=== PATIENT | male | born 1925 | race Caucasian/White ===

== ENCOUNTER 2016-05-02 09:07 | Inpatient (IN) | payer OTHER ==
[2016-05-02] MEDS ORDERED: ATROVENT NEB INH ONE (09:42)
[2016-05-02] MEDS ORDERED: SOLU-MEDROL IV ONE (09:42)
[2016-05-02] MEDS ORDERED: ALBUTEROL NEB INH ONE (09:42)
--- NOTE | 2016-05-02 09:57 | PROVIDER DOCUMENTATION ---
HPI-Musculoskeletal Pain/Inj - GENERAL Chief Complaint: Wheezing Stated Complaint: SOB Time Seen by Provider: 05/02/16 09:09 Source: patient, family - HX OF PRESENT ILLNESS-MUSKULOSKELTAL Nature of Presenting Problem: Pt is 89 y/o M presents to the ED with weakness. Pt's friend states Pt fell in bathroom and hit head. Pt's states Pt was recently seen by PCP and was diagnosed with bronchitis and was prescribed Levaquin. Pt's states Pt has taken one dose. Pt states hx of COPD and denies home O2. Quality of Pain: reports: aching Severity in ED: mild Onset/Duration: unsure Timing: still present Modifying Factors: improves with: nothing Any recent injury?: Yes (fall ) Locality of Occurance: Home Similar Symptoms Previously?: Yes Recently seen or treated by another doctor?: Yes - FALL INJURY Location of Pain/Injury: reports: head (L side forehead) Pain Radiation: reports: no radiation Reason for Fall: reports: unknown Symptoms prior to fall:: reports: none Loss of Consciousness: brief (seconds) Injury Associated Symptoms: reports: muscle aches, shortness of breath, weakness , trouble walking. denies: arm pain, back/neck pain, chest pain, diaphoresis, dizziness, headaches, joint pain, nausea, puncture wound, sensory/motor loss, snap/crack/pop sensation, pain with inspiration, unable to bear weight, vomiting Review of Systems - Adult - REVIEW OF SYSTEMS - ADULT Constitutional: denies: chills, fever Eyes: denies: blurred vision, double vision Ears, Nose, Mouth & Throat: denies: ear pain, nose pain, throat pain Cardiovascular: denies: chest pain, heart murmur, irregular heart rate Respiratory: reports: shortness of breath, wheezing. denies: cough Gastrointestinal: denies: abdominal pain, diarrhea, nausea, vomiting Genitourinary: denies: dysuria, hematuria Musculoskeletal: reports: muscle aches, muscle weakness. denies: bone pain, joint pain, neck pain Integumentary: denies: hives, itching Neurological: denies: dizziness/vertigo, headache/migraines Psychiatric: reports: no symptoms reported Endocrine: reports: no symptoms reported Hematologic/Lymphatic: reports: no symptoms reported Allergic/Immunologic: reports: no symptoms reported All Other Systems: Reviewed and Negative Past History - Adult - PAST MEDICAL HISTORY-ADULT Review of Records: reports: Nursing Assessment Review, Medications Reviewed, Social history reviewed & non-contributory. Major Childhood Illnesses: reports: denies history Cardiovascular: reports: A-Fib, hyperlipidemia, pacemaker Respiratory: reports: asthma, COPD Gastrointestinal: reports: denies history Obstetrical/Gynecological: reports: denies history Genitourinary: reports: other ("prostate problems") Musculoskeletal: reports: denies history Neurological: reports: denies history Endocrine/Immune: reports: denies history Other Conditions: reports: denies history - PRIOR SURGERIES/PROCEDURES Surgical/Procedure History: reports: other (TURP) - IMMUNIZATION STATUS Childhood Immunizations: See Nurse Assessment Flu Vaccine: See Nurse Assessment - FAMILY HISTORY Family History: reviewed, not pertinent - SOCIAL HISTORY Smoking: quit less than 1 year, cigarettes Substance Use: alcohol Alcohol Use Frequency: rarely Number of drinks per typical drinking period:: 2 drinks Living Situation: family Physical Exam-Injury Related - Physical Exam-Injury Related Initial Vital Signs Reviewed: Yes General Appearance: appears well, alert, no apparent distress Eyes: PERRL/EOMI, pink conjunctivae, fundi clear, no AV nicking Head, Ears, Nose, Mouth & Throat: normocephalic/atraumatic, moist mucous membranes, normal ENT inspection, TMs normal, pharynx normal Neck: non-tender, full range of motion, supple, normal inspection Respiratory: chest non-tender, no pleuratic chest pain, no respiratory distress , no accessory muscle use, rhonchi, wheezing, increased rate Cardiovascular: normal peripheral pulses, regular rate, rhythm, no edema, no gallop, no JVD, no murmur Abdominal Exam: normal bowel sounds, non tender, soft, no organomegaly, no pulsatile mass Lymphatic: no adenopathy Back Exam: normal inspection, no CVA tenderness, no vertebral tenderness Extremity: normal range of motion, non-tender, normal inspection, no pedal edema , no calf tenderness, normal capillary refill Integumentary: normal color, warm/dry, ecchymosis (L side forehead) Neurologic: grossly normal Psych/Mental Status: normal mood/affect, oriented x 3 Progress - PLAN OF CARE/RESULTS Progress/Plan/Lab Results: Orders Category Date Time Status Cardiac Monitoring DIRECTED Care 05/02/16 09:42 Active Saline Loc NOW Care 05/02/16 09:42 Active CHEST-2 VIEWS [RAD] Stat Exams 05/02/16 09:19 Taken HEAD/C-SPINE W/O CONTRAST [CT] Stat Exams 05/02/16 09:21 Ordered ABG [RESP] Routine Lab 05/02/16 09:42 Ordered BLOOD CULTURE [BLDCUL] Stat Lab 05/02/16 09:42 Uncollected CBC WITH ELECTRONIC DIFF [HEME] Stat Lab 05/02/16 09:42 Uncollected CK PROFILE [SP CHEM] Stat Lab 05/02/16 09:42 Uncollected COMPREHENSIVE METABOLIC PANEL [CHEM] Stat Lab 05/02/16 09:42 Uncollected D-DIMER [CHEM] Stat Lab 05/02/16 09:42 Uncollected MAGNESIUM [CHEM] Stat Lab 05/02/16 09:42 Uncollected PRO B-NATRIURETIC PEPTIDE Stat Lab 05/02/16 09:42 Uncollected PROTIME WITH INR [COAG] Stat Lab 05/02/16 09:42 Uncollected PTT [COAG] Stat Lab 05/02/16 09:42 Uncollected TROPONIN T Stat Lab 05/02/16 09:42 Uncollected UA NIMS W/REFLEX CULT [URINALYSIS] Stat Lab 05/02/16 09:42 Uncollected Albuterol [Albuterol Neb] Med 05/02/16 09:42 Discontinued 7.5 mg INH NOW ONE Ipratropium [place] Neb [Atrovent Neb] Med 05/02/16 09:42 Discontinued 0.5 mg INH NOW ONE Methylprednisolone Sod Succ [Solu-Medrol] Med 05/02/16 09:42 Discontinued 125 mg IV NOW ONE Aerosol Treatments Routine Oth 05/02/16 09:44 Active Aerosol Treatments Stat Oth 05/02/16 09:44 Active EKG [EKG] Stat Ther 05/02/16 09:42 Ordered Vital Signs - 24 hr 05/02/16 09:13 Temperature 97.8 F Pulse Rate 81 Respiratory 22 Rate Blood Pressure 142/82 O2 Sat by Pulse 94 L Oximetry Laboratory Tests 05/02/16 05/02/16 05/02/16 10:16 10:16 10:16 WBC 9.95 RBC 4.52 L Hgb 14.0 Hct 38.8 L MCV 85.8 MCH 31.0 MCHC 36.1 RDW Std Deviation 12.5 Plt Count 154 MPV 10.0 Immature Gran % (Auto) 0.2 Neut % (Auto) 74.8 Lymph % (Auto) 9.5 L [place] % (Auto) 15.4 H Eos % (Auto) 0.0 Baso % (Auto) 0.1 Immature Gran # (Auto) 0.02 Neut # (Auto) 7.44 H Lymph # (Auto) 0.95 L [place] # (Auto) 1.53 H Eos # (Auto) 0.00 Baso # (Auto) 0.01 PT INR D-Dimer 0.48 Specimen Type Sample Site pH pCO2 pO2 HCO3 Base Excess Oxyhemoglobin ABG O2 Sat (Calculated) ABG O2 Saturation ABG Carboxyhemoglobin ABG Methemoglobin Kev Test A-a O2 Difference Total Hemoglobin Lactate Blood Gas Modality FiO2 % Sodium 120 L* Potassium 4.1 Chloride 84 L Carbon Dioxide 23 L Anion Gap 13 BUN 18 Creatinine 0.8 Estimated GFR/1.73 m2 > 60 BUN/Creatinine Ratio 23 Glucose 114 H Calculated Osmolality 245 Calcium 8.1 L Magnesium 1.9 Total Bilirubin 1.37 H AST 67 H ALT 35 Alkaline Phosphatase 59 Creatine Kinase 806 H Troponin T Ngs-G-Qalatcnhghd Pept Total Protein 6.1 L Albumin 3.7 Globulin 2.4 Albumin/Globulin Ratio 1.5 05/02/16 05/02/16 05/02/16 10:16 10:16 10:16 WBC RBC Hgb Hct MCV MCH MCHC RDW Std Deviation Plt Count MPV Immature Gran % (Auto) Neut % (Auto) Lymph % (Auto) [place] % (Auto) Eos % (Auto) Baso % (Auto) Immature Gran # (Auto) Neut # (Auto) Lymph # (Auto) [place] # (Auto) Eos # (Auto) Baso # (Auto) PT 15.9 H INR 1.49 D-Dimer Specimen Type Sample Site pH pCO2 pO2 HCO3 Base Excess Oxyhemoglobin ABG O2 Sat (Calculated) ABG O2 Saturation ABG Carboxyhemoglobin ABG Methemoglobin Kev Test A-a O2 Difference Total Hemoglobin Lactate Blood Gas Modality FiO2 % Sodium Potassium Chloride Carbon Dioxide Anion Gap BUN Creatinine Estimated GFR/1.73 m2 BUN/Creatinine Ratio Glucose Calculated Osmolality Calcium Magnesium Total Bilirubin AST ALT Alkaline Phosphatase Creatine Kinase Troponin T < 0.010 Mep-R-Kiliyzzfjhj Pept 4412 H Total Protein Albumin Globulin Albumin/Globulin Ratio 03/18/17 10:40 WBC RBC Hgb Hct MCV MCH MCHC RDW Std Deviation Plt Count MPV Immature Gran % (Auto) Neut % (Auto) Lymph % (Auto) [place] % (Auto) Eos % (Auto) Baso % (Auto) Immature Gran # (Auto) Neut # (Auto) Lymph # (Auto) [place] # (Auto) Eos # (Auto) Baso # (Auto) PT INR D-Dimer Specimen Type ARTERIAL Sample Site R RADIAL pH 7.48 H pCO2 32 L pO2 60 HCO3 25.6 Base Excess 1.0 Oxyhemoglobin 93.1 L ABG O2 Sat (Calculated) 18.4 ABG O2 Saturation 96.3 ABG Carboxyhemoglobin 2.30 ABG Methemoglobin 1.1 Kev Test YES A-a O2 Difference 50.0 Total Hemoglobin 14.1 Lactate 1.90 Blood Gas Modality ROOM AIR FiO2 % 21.0 Sodium Potassium Chloride Carbon Dioxide Anion Gap BUN Creatinine Estimated GFR/1.73 m2 BUN/Creatinine Ratio Glucose Calculated Osmolality Calcium Magnesium Total Bilirubin AST ALT Alkaline Phosphatase Creatine Kinase Troponin T Vda-A-Dsuuzijirhy Pept Total Protein Albumin Globulin Albumin/Globulin Ratio - EKG 1 Time of EKG reading by physician:: 10:39 EKG Read and Signed by:: Pia Hurt EKG Interpretation (*Must complete 3 of following elements*): Abnormal ( inferior infarct, age undetermined; possible anterolateral infarct,age undetermined) Rate: 80 Rhythm: wide QRS rhythm Comments: left axis deviation; nonspecific intraventricular block - XRAY 1 XRAY: Bilateral XRAY Study: Chest Impression: Abnormal XRAY Interpretation: CHF per Dr. Hurt - CT/MRI 1 CT Study: Cervical Spine, Head Impression: Abnormal CT Results: NAP intracranially; DJD but no fx. or other definite acute cspine injury - CONSULTS/PCP/HOSPITALIST Notification #1 *Consult/PCP/Hospitalist*: Dr. Lawrence Time Discussed: 12:00 (Dr. Lawrence accepted admit ) Reason/Comments: Dr. Hurt consulted with Dr. Lawrence about admit of Pt Consult Disposition: Admit Departure - Departure Time of Disposition Order: 11:41 DIAGNOSIS: COPD exacerbation, Hyponatremia Head injury Qualifiers: Encounter type: initial encounter Qualified Code(s): S09.90XA - Unspecified injury of head, initial encounter Disposition: ADMITTED INPATIENT 09 Certified Medical Emergency: Emergent Condition: Stable Attestation - Scribe Verification/Attestation Scribe:: Stephanie Wilson Acting as Scribe for:: Pia Hurt Scribe documention review:: This chart was documented by a scribe and accurately reflects the service the provider performed and the decisions made by the provider.
[2016-05-02 10:36] LABS: MANUAL DIFF NEEDED? NO
[2016-05-02 10:38] LABS: BASO% 0.1 % (0.0-0.8); HEMATOCRIT 38.8 % (42.0-52.0); IMM GRAN# 0.02 X1000 (0.0-0.04); IMM GRAN% 0.2 % (0.0-0.5); LYMPH# 0.95 X1000 (1.2-3.4); LYMPH% 9.5 % (20.5-51.1); MCHC 36.1 g/dL (33-37); MCV 85.8 FL (81-99); MONO# 1.53 X1000 (0.11-0.59); MONO% 15.4 % (1.7-9.3); NEUT% 74.8 % (42.2-75.2); PLT 154 X1000 (130-400); RBC 4.52 XMIL (4.7-6.1)
[2016-05-02 10:47] LABS: INR 1.49; PROTIME 15.9 Seconds (9.2-11.7)
[2016-05-02 10:54] LABS: ALLEN TEST YES; BLOOD TYPE ARTERIAL; DRAW SITE R RADIAL; METHB 1.1 % (0.0-1.5); O2(CT) 18.4 mL/dL (15.0-23.0); PCO2(98.6) 32 mmHg (35-45); PO2(98.6) 60 mmHg (60-100); SAMPLE BLOOD; SAO2 96.3 % (95.0-100.0); THB 14.1 g/dL (11.5-17.4); pH(98.6) 7.48 (7.35-7.45)
[2016-05-02 10:57] LABS: MODALITY ROOM AIR
[2016-05-02 11:10] LABS: AGAP 13; ALBUMIN 3.7 g/dL (3.5-5.0); ALKALINE PHOSPHATASE 59 U/L (32-122); BUN 18 mg/dL (8-22); CALCIUM 8.1 mg/dL (8.8-10.2); CHLORIDE 84 mmol/L (98-107); CK PROFILE 806 U/L (24-204); COSMO 245; GOT 67 U/L (10-34); GPT 35 U/L (10-44); MAGNESIUM 1.9 mg/dL (1.5-2.7); POTASSIUM 4.1 mmol/L (3.5-5.1); TCO2 23 mmol/L (25-35); TOTAL BILIRUBIN 1.37 mg/dL (0.20-1.00); TOTAL PROTEIN 6.1 g/dL (6.3-8.3)
--- NOTE | 2016-05-02 11:14 | Diag Imaging Result Document ---
PROCEDURE NAME: HEAD/C-SPINE W/O CONTRAST - 05/02/2016 CT HEAD AND C-SPINE WITHOUT CONTRAST: COMPARISON: CT head dated 06/27/2011. FINDINGS: Head: There is extensive low attenuation in the periventricular and subcortical white matter that is stable, consistent with advanced microangiopathy. There is no evidence of acute infarct, given the limited sensitivity of CT verses MRI. There is no discrete intracranial mass, mass effect, or intracranial hemorrhage. There is mild ethmoid and maxillary sinus mucosal disease. Surrounding soft tissues are essentially unremarkable, otherwise, by CT. Calvaria is intact. C-spine: There is multilevel facet arthropathy at virtually every level, more prominent on the left. There is also multilevel degenerative disk disease, most significant at C4-5 and C6-7, where there is loss of disk space height and more prominent marginal osteophytes. There is some degree of neuroforaminal narrowing and, to a lesser degree, central canal narrowing at several levels, related to the degenerative change. There is no evidence of fracture, traumatic subluxation, or intrinsic osseous lesion, otherwise. There is minimal anterolisthesis of C5 on C6, related to facet arthropathy. Surrounding soft tissues are essentially unremarkable. IMPRESSION: 1. Stable extensive chronic changes, as described, but no evidence of acute intracranial pathology. 2. Multilevel degenerative change throughout the cervical spine, but no evidence of fracture or other definite acute C-spine injury.
[2016-05-02 11:27] LABS: PTT 47.6 Seconds (22.0-36.0)
[2016-05-02 11:36] LABS: CK INDEX 1.7 (0.0-2.5); CK-MB 13.63 ng/mL (0.0-5.0); SODIUM 122 mmol/L (136-145)
--- NOTE | 2016-05-02 11:43 | Diag Imaging Result Document ---
PROCEDURE NAME: CHEST-2 VIEWS - 05/02/2016 SEATED AP AND LATERAL RADIOGRAPH OF THE CHEST: COMPARISON: 08/27/2015. FINDINGS: Inspiration is suboptimal. Central vasculature appears prominent suggesting pulmonary venous congestion and there are bilateral interstitial and airspace opacities, worst on the right, that probably represents pulmonary edema. Superimposed pneumonia cannot be excluded, especially at the right lung base. Cardiac silhouette is grossly stable. Left-side pacemaker is in stable position. IMPRESSION: Suggestion of pulmonary venous congestion and mild basilar edema. Superimposed pneumonia cannot completely be excluded.
[2016-05-02] MEDS ORDERED: LASIX IV ONE (12:24)
[2016-05-02] MEDS ORDERED: ZITHROMAX 500 MG/NS 250 ML IV SCH (12:30)
[2016-05-02 12:40] LABS: URINE MICRO REVIEW NEEDED? NO; URINE SOURCE CLEAN CATCH
[2016-05-02 12:49] LABS: BILIRUBIN URINE NEGATIVE (NEGATIVE); BLOOD URINE TRACE (NEGATIVE); COLOR YELLOW; GLUCOSE URINE NEGATIVE (NEGATIVE); LEUKOCYTES URINE LARGE (NEGATIVE); NITRITE URINE NEGATIVE (NEGATIVE); PROTEIN URINE 30 mg/dL (NEGATIVE); TURBIDITY URINE HAZY (CLEAR); UROBILINOGEN URINE NORMAL (NORMAL)
[2016-05-02 12:51] LABS: UR EPITHELIAL CELLS >10 /HPF (<10); URINE BACTERIA NEGATIVE /HPF; URINE CULTURE NEEDED? YES; URINE RBC <10 /HPF (<10); URINE WBC <10 /HPF (<10)
[2016-05-02] MEDS ORDERED: TYLENOL PO PRN (12:59)
[2016-05-02] MEDS ORDERED: ZITHROMAX 500 MG/NS 250 ML IV ONE (13:00)
[2016-05-02] MEDS: ZITHROMAX 500 MG/NS 250 ML IV SCH (13:36)
[2016-05-02] MEDS ORDERED: TPN ELECTROLYTES 20 ML, MAGNESIUM SULFATE 5 MEQ, POTASSIUM CHLORIDE 20 MEQ, M.V.I.-12 1... IV SCH ×8 (15:00)
--- NOTE | 2016-05-02 16:35 | HISTORY AND PHYSICAL ---
PRIMARY CARE PROVIDER: Dr. Kimberly Lake. CHIEF COMPLAINT: Wheezing, shortness of breath, weakness, and syncope. HISTORY OF PRESENT ILLNESS: Mr. Ron Kevin is an 89-year-old male who has a past medical history of atrial fibrillation with a permanent pacemaker on Xarelto therapy, COPD and asthma without oxygen at home, and hypothyroidism. He denies any history of congestive heart failure or heart disease. According to ER records, a friend stated that he fell in the bathroom and hit his head. The patient is currently alone in the room, so when patient was questioned about this event he states he does not remember falling, so it is unknown if he had syncope or if he hit his head and does not remember. Head CT was negative for any acute findings and cervical spine was stable. It only showed degenerative disk disease. He has no complaints of headache or dizziness. He states for the last week he has had symptoms of shortness of breath with wheezing, but denies coughing up any phlegm. Denies fever or chills. He was seen by his primary care provider, who diagnosed him with bronchitis and he was started on Levaquin per the , who is also not at the bedside. This was obtained from ER medical records. He only had 1 dose of his Levaquin. The chest x-ray shows that he does have some pulmonary edema and some possible right- sided pneumonia, although he denies having a history of congestive heart failure. Will treat with a 1-time dose of Lasix and start him on azithromycin for possible pneumonia. He has wheezing and crackles on auscultation. He is currently on room air and his saturation is hanging around 90% to 92%. He is short of breath and he has audible expiratory wheezes. His atrial fibrillation is at a controlled rate and he is being continuously paced at a rate of 80 by his permanent pacemaker. He has no lower extremity edema. He denies nausea, vomiting, diarrhea, or constipation. He denies blood in the urine or stool. Denies lower extremity edema. He denies pain. We will admit him to the medical floor and do a workup for COPD and congestive heart failure. PAST MEDICAL HISTORY: 1. Atrial fibrillation, currently paced at a rate of 80. 2. Hyperlipidemia. 3. GERD. 4. COPD and asthma. No home O2. 5. Thoracic spondylosis and degenerative disk disease. 6. BPH status post TURP. 7. Depression. 8. Hypothyroidism. 9. Arthritis. 10. Restless legs syndrome. He takes Neurontin for it. 11. Insomnia/ PAST SURGICAL HISTORY: 1. TURP. 2. Bilateral cataract surgery. 3. Permanent pacemaker. FAMILY HISTORY: Positive for hyperlipidemia, hypertension, and stroke. SOCIAL HISTORY: Quit smoking in 1992 but prior to that he was a 3 pack per day smoker for 20 years. Has an occasional social drink of alcohol. Denies illicit drug use. He lives at home with his . REVIEW OF SYSTEMS: A 14-point review of systems were complete and all were negative except for those mentioned in the above HPI. ALLERGIES: Diazepam, penicillin, and Alfuzosin. HOME MEDICATIONS: Wellbutrin 75 mg p.o. daily; Vytorin nightly; Neurontin 100 mg p.o. daily; Neurontin 300 mg p.o. nightly; Synthroid 37.5 mcg p.o. daily; Lawanda 180 mg p.o. daily; vitamin C 1000 mg p.o. daily; calcium plus D3 extended release tablet 1 tablet p.o. daily; Culturelle once daily; vitamin B12 1000 mcg p.o. daily; Detrol 2 mg p.o. daily; Eszopiclone 2 mg p.o. nightly; glucosamine daily; magnesium oxide 125 mg p.o. daily; multivitamin with iron twice daily; Xarelto 50 mg p.o. nightly; Co Q-10 2 tabs p.o. daily. LABORATORY DATA: White blood cells 9000, hemoglobin 14, hematocrit 38, platelet count 154,000. INR 1.49. PTT is 47.6. D-dimer is 0.48. pH 7.48, pCO2 of 32, PO2 of 60, bicarbonate 25, base excess 1, oxyhemoglobin 93 on room air. Lactate 1.9. Sodium 122, potassium 4.1, BUN 18, creatinine 0.8, glucose 114, calcium 8.1, magnesium 1.9. Total bilirubin is 1.37, AST 67, ALT 35. CK 806. MB 13.63. Troponin less than 0.01. proBNP 4412. Protein 6.1. Urinalysis pending. IMAGING: Chest x-ray: Pulmonary venous congestion and mild bibasilar edema, right greater than left. Possible superimposed pneumonia on the right. Head and cervical CT: Stable extensive chronic changes, but no evidence of acute intracranial pathology. Multilevel degenerative change throughout the cervical spine, but no evidence of fracture or other acute C-spine injury. EKG: Paced rhythm, rate of 80, with left axis deviation. PHYSICAL EXAMINATION: VITAL SIGNS: Temperature 97.8 degrees, heart rate 80, respiratory rate 22, blood pressure 122/80, O2 saturation 93% on room air, 5 feet 8 inches tall, 170 pounds, 25.8 BMI. GENERAL: Mr. Kevin is an 89-year-old, ill-appearing male with mild respiratory discomfort, but able to answer questions appropriately. HEENT: Atraumatic, normocephalic. Pupils equal, round, reactive to light. Extraocular movements intact. Mucous membranes moist. NECK: No obvious JVD. No carotid bruits. CARDIOVASCULAR: S1 and S2. Regular rate and rhythm. Left chest pacemaker in place. No rubs, gallops, or murmurs. PULMONARY: Bilateral anterior and posterior expiratory wheezes with crackles in the bases bilaterally. Mild work of breathing. Mild accessory muscle use. Currently on room air. GASTROINTESTINAL: Soft, nontender, nondistended. Positive bowel sounds x4. EXTREMITIES: No edema noted. Dorsalis pedal pulses +3, radial pulses +2. SKIN: Warm, dry, intact. NEUROLOGIC: A and O x3. Moved all extremities equally. ASSESSMENT AND PLAN: 1. Chronic obstructive pulmonary disease exacerbation, although he is not retaining CO2. Will treat with IV steroids, inhaled albuterol and Atrovent, acetylcysteine and budesonide. Will treat with antibiotic coverage. Will use azithromycin as he has a penicillin allergy. Will add 2L nasal cannula as needed and do aggressive pulmonary toilet. 2. Possible pneumonia on the right. Again, will use azithromycin. 3. Pulmonary edema with bilateral venous congestion on chest x-ray. He does have wheezes and crackles with auscultation. Will rule out congestive heart failure with an echocardiogram. Will give a 1-time dose of 40 of IV Lasix and follow up with a chest x-ray tomorrow, and repeat a proBNP for tomorrow. 4. Syncope versus fall. The patient did hit his head, so unsure if he just does not remember falling or if he truly passed out. Again, we will do a carotid and echocardiogram. Head CT was negative for any acute findings. No signs of a stroke. 5. Hyponatremia. Will repeat sodium level tomorrow. He has received Lasix for today. 6. Hyperbilirubinemia with some mild transaminitis. Will repeat laboratory tomorrow. It is unsure if this is chronic in nature. 7. Atrial fibrillation history, currently being 100% paced at a rate of 70 ventricularly paced. He takes Xarelto. Will continue this. 8. Hypothyroidism. Continue Synthroid and check TSH and T4 in the morning. 9. Hyperlipidemia. Continue home medication and recheck a lipid panel in the morning. 10. Gastroesophageal reflux disease. Continue proton pump inhibitor. 11. Benign prostatic hypertrophy history, status post transurethral resection of prostate. Continue Detrol. 12. Depression. Continue Wellbutrin. 13. Restless legs syndrome. Continue Neurontin. 14. Insomnia. Continue Eszopiclone. 15. Arthritis. Continue glucosamine. 16. Deep venous thrombosis prophylaxis with Xarelto. 17. Gastrointestinal prophylaxis with proton pump inhibitor. Dictated by CHANELL Conn for Kenny Ruiz MD
[2016-05-02] MEDS: SOLU-MEDROL IV SCH (18:46)
[2016-05-02] MEDS: PULMICORT INH SCH (19:48)
[2016-05-02] MEDS: MUCOMYST 20% INH SCH (19:48)
[2016-05-02] MEDS: DUONEB (A & A) INH SCH ×2 (19:48→23:29)
[2016-05-02] MEDS: NEURONTIN PO SCH (20:06)
[2016-05-02] MEDS: XARELTO PO SCH (20:06)
[2016-05-02] MEDS: ZETIA PO SCH (20:06)
[2016-05-02] MEDS: CENTRUM SILVER PO SCH (20:06)
[2016-05-02] MEDS: ZOCOR PO SCH (20:06)
[2016-05-02] MEDS: AMBIEN PO SCH (20:54)
[2016-05-02] MEDS ORDERED: LUNESTA PO SCH (21:00)
[2016-05-03] MEDS: SOLU-MEDROL IV SCH ×3 (01:19→21:13)
[2016-05-03] MEDS: DUONEB (A & A) INH SCH ×7 (04:05→23:35)
[2016-05-03 04:19] LABS: ALLEN TEST YES; BLOOD TYPE ARTERIAL; DRAW SITE R RADIAL; METHB 1.2 % (0.0-1.5); O2(CT) 19.4 mL/dL (15.0-23.0); PCO2(98.6) 39 mmHg (35-45); PO2(98.6) 67 mmHg (60-100); SAMPLE BLOOD; SAO2 96.6 % (95.0-100.0); THB 14.8 g/dL (11.5-17.4); pH(98.6) 7.45 (7.35-7.45)
[2016-05-03 04:20] LABS: MODALITY ROOM AIR
[2016-05-03 04:27] LABS: HEMATOCRIT 39.4 % (42.0-52.0); HEMOGLOBIN 14.4 g/dL (14.0-18.0); LYMPH% 6.5 % (20.5-51.1); MANUAL DIFF NEEDED? YES; MCH 31.1 PG (27-31); MCHC 36.5 g/dL (33-37); MCV 85.1 FL (81-99); MONO# 0.25 X1000 (0.11-0.59); MONO% 3.3 % (1.7-9.3); MPV 10.1 FL (7.4-10.4); NEUT% 90.2 % (42.2-75.2); PLT 169 X1000 (130-400); RBC 4.63 XMIL (4.7-6.1)
[2016-05-03 04:33] LABS: HEMOGLOBIN A1C 5.2 % (4.8-6.0)
[2016-05-03 04:34] LABS: INR 1.74; PROTIME 18.6 Seconds (9.2-11.7)
[2016-05-03 04:35] LABS: AGAP 13; ALBUMIN 3.5 g/dL (3.5-5.0); ALKALINE PHOSPHATASE 56 U/L (32-122); BUN 16 mg/dL (8-22); CALCIUM 8.7 mg/dL (8.8-10.2); CHLORIDE 93 mmol/L (98-107); COSMO 264; GOT 64 U/L (10-34); GPT 36 U/L (10-44); MAGNESIUM 2.2 mg/dL (1.5-2.7); POTASSIUM 3.6 mmol/L (3.5-5.1); SODIUM 129 mmol/L (136-145); TCO2 23 mmol/L (25-35); TOTAL BILIRUBIN 1.06 mg/dL (0.20-1.00)
[2016-05-03 04:39] LABS: PTT 42.9 Seconds (22.0-36.0)
[2016-05-03 04:44] LABS: FREE T4 1.66 ng/dL (0.93-1.70)
[2016-05-03 04:46] LABS: BANDS 8 % (0-1); LYMPHS 6 % (21-51); MONO 4 % (1-9)
[2016-05-03] MEDS: PRILOSEC PO SCH (06:05)
[2016-05-03] MEDS: PULMICORT INH SCH ×2 (07:27→19:58)
[2016-05-03] MEDS: MUCOMYST 20% INH SCH ×2 (07:27→19:58)
[2016-05-03] MEDS ORDERED: CALTRATE PLUS TABLET PO SCH (09:00)
[2016-05-03] MEDS: ALLEGRA PO SCH (11:45)
[2016-05-03] MEDS: VITAMIN B-12 PO SCH (11:46)
[2016-05-03] MEDS: SYNTHROID PO SCH (11:46)
[2016-05-03] MEDS: MAG-OX PO SCH (11:46)
[2016-05-03] MEDS: WELLBUTRIN PO SCH (11:47)
[2016-05-03] MEDS: NEURONTIN PO SCH ×2 (11:47→21:13)
[2016-05-03] MEDS: CENTRUM SILVER PO SCH ×2 (11:47→21:12)
[2016-05-03] MEDS: CULTURELLE PO SCH (11:48)
[2016-05-03] MEDS: COENZYME Q10 PO SCH (11:49)
[2016-05-03] MEDS: VITAMIN C PO SCH (11:50)
[2016-05-03] MEDS: ZITHROMAX 500 MG/NS 250 ML IV SCH (11:51)
[2016-05-03] MEDS: CALTRATE 600 + D PO SCH (13:01)
--- NOTE | 2016-05-03 13:19 | Diag Imaging Result Document ---
PROCEDURE NAME: CHEST-2 VIEWS - 05/03/2016 SEATED AP AND LATERAL RADIOGRAPH OF THE CHEST: COMPARISON: 05/02/2016. FINDINGS: The central congestion and bibasilar infiltrates appear to have improved during the interval. The lungs are clear otherwise. No new consolidations are appreciated. Cardiac silhouette is stable. IMPRESSION: Interval improvement of pulmonary venous congestion and bibasilar infiltrates.
[2016-05-03] MEDS: DETROL PO SCH (13:30)
[2016-05-03] MEDS: PATIENT'S OWN MED PO SCH (15:19)
--- NOTE | 2016-05-03 16:38 | ECHO REPORT ---
ORDER DATE: 05/02/2016 ECHOCARDIOGRAPHIC MEASUREMENTS: 1. Interventricular septum 1.0. Left ventricular posterior wall 1.2. Diastolic diameter 5.1. Left atrium 3.9. Aorta 3.5. Aortic valve leaflets are mildly sclerosed, trileaflet opening normally. Pulmonic valve was normal. There is trace pulmonary regurgitation. 2. Normal left ventricular cavity size. Estimated ejection fraction of 60%. There is biatrial enlargement. 3. Pacing leads are noted in the right chamber. 4. There is a moderate tricuspid regurgitation. Peak velocity across the tricuspid valve was 2.6 m/sec. Pulmonary artery systolic pressure 37-40 mmHg. There is trace pulmonary regurgitation. 5. There is mild mitral regurgitation. 6. Peak velocity across the aortic valve less than 2 m/sec. By Doppler studies there is no aortic stenosis or regurgitation. 7. There is no pericardial effusion or obvious intracardiac mass or thrombus.
--- NOTE | 2016-05-03 18:31 | PROGRESS NOTE ---
DATE: 05/03/2016 SUBJECTIVE: This patient states that he is feeling better. He is still having shortness of breath, the cough also is better. Family members at the bedside. He has no specific complaints, no pain, no nausea or vomiting. No diarrhea. No constipation. OBJECTIVE: Vital Signs: Temperature 97.6 degrees, pulse 81, respiratory rate 15, blood pressure 147/68, O2 saturation 99 on 2 L of nasal cannula. HEENT: Head normocephalic. He has a left part of the forehead and temporal area bruise, mild edema. He also has blood at the level of the right conjunctiva. Neck: Supple. No JVD. No masses. Cardiovascular: RRR. No murmurs. Chest: Decreased breath sounds globally. Prolonged expiratory phase, scattered wheezing and scattered end expiatory wheezes. No rales. Abdomen: Soft, nontender, nondistended. No hepatosplenomegaly. Extremities: No edema. No clubbing. No cyanosis. Neurological: The patient is alert. He is oriented x3. No focal neurological deficits. LABORATORY: WBC 7.6, hemoglobin 14.4, hematocrit 39.4, platelets 169,000. Sodium 129, potassium 3.6, chloride 93, bicarbonate 23, BUN 16, creatinine 0.8, glucose 169, calcium 8.7, total bilirubin 1, AST 64, ALT 36, alkaline phosphatase 56, CK 548. Troponins negative x2. ASSESSMENT AND PLAN: 1. He has been having wheezing and he is improving with intravenous steroids, inhaled albuterol and Atrovent and the rest of the respiratory treatment. He has been covered with antibiotics. At this point he is on azithromycin. He has a penicillin allergy. Will continue with oxygen and aggressive pulmonary toilet. 2. Possible pneumonia on the right lower lobe. Again we will continue with azithromycin. 3. Pulmonary edema with bilateral venous congestion on chest x-ray. He does have end expiatory wheezing and mild crackles at the bases with auscultation. We did a echocardiogram that did show a normal ejection fraction. His proBNP yesterday was 4412 and today 4900. Probably this patient has a diastolic congestive heart failure. I will start this patient on furosemide 40 IV daily and I will increase or decrease that depending on the patient's evolution. 4. Possible syncope, this patient did hit his head but he apparently does not remember what happened or if he truly passed out. So far the troponins are negative and I did not see any change in the EKG. No signs of a stroke. Will monitor. 5. Hyponatremia. The sodium level is better today. Will continue with the same management. 6. He is not confused. 7. Hyperbilirubinemia with some elevation of the AST, will monitor. 8. History of atrial fibrillation. Currently he has been 100% paced, he takes anticoagulation, will continue this. 9. Hypothyroidism. Continue with Synthroid. 10. Hyperlipidemia. Continue with medication. 11. Gastroesophageal reflux disease. Continue with proton pump inhibitor. 12. Benign prostatic hypertrophy status post transurethral resection of prostate. Continue with Detrol. 13. Depression. Continue with Wellbutrin . 14. Restless legs syndrome. Continue with Neurontin. 15. Insomnia. Continue with home medication. 16. Arthritis. Continue with home medication. 17. Deep vein thrombosis prophylaxis. This patient is on Xarelto . 18. Gastrointestinal prophylaxis. This patient is on PPI. Overall this patient is doing a little bit better. I will start today Lasix 40 daily and we will reevaluate this patient in the morning, pulmonary department has been consulted, Dr. Helm, this patient has been seeing Dr. Helm as an outpatient.
[2016-05-03] MEDS: ZETIA PO SCH (21:12)
[2016-05-03] MEDS: XARELTO PO SCH (21:12)
[2016-05-03] MEDS: AMBIEN PO SCH (21:12)
[2016-05-03] MEDS: ZOCOR PO SCH (21:13)
[2016-05-04] MEDS: ZITHROMAX 500 MG/NS 250 ML IV SCH (01:30)
[2016-05-04] MEDS: DUONEB (A & A) INH SCH ×6 (03:42→23:16)
[2016-05-04] MEDS: SOLU-MEDROL IV SCH ×3 (04:54→17:15)
[2016-05-04] MEDS: MUCOMYST 20% INH SCH ×2 (07:56→19:40)
[2016-05-04] MEDS: PULMICORT INH SCH ×2 (07:56→19:41)
[2016-05-04 08:56] LABS: HEMATOCRIT 41.5 % (42.0-52.0); HEMOGLOBIN 14.5 g/dL (14.0-18.0); IMM GRAN# 0.04 X1000 (0.0-0.04); IMM GRAN% 0.3 % (0.0-0.5); LYMPH# 0.67 X1000 (1.2-3.4); LYMPH% 4.4 % (20.5-51.1); MANUAL DIFF NEEDED? YES; MCH 30.7 PG (27-31); MCHC 34.9 g/dL (33-37); MCV 87.9 FL (81-99); MONO# 0.67 X1000 (0.11-0.59); MONO% 4.4 % (1.7-9.3); NEUT% 90.9 % (42.2-75.2); PLT 218 X1000 (130-400); RBC 4.72 XMIL (4.7-6.1)
[2016-05-04 09:25] LABS: BANDS 4 % (0-1); LYMPHS 4 % (21-51); MONO 4 % (1-9)
[2016-05-04 09:26] LABS: AGAP 14; BUN 19 mg/dL (8-22); CALCIUM 8.7 mg/dL (8.8-10.2); CHLORIDE 89 mmol/L (98-107); COSMO 263; POTASSIUM 4.1 mmol/L (3.5-5.1); SODIUM 129 mmol/L (136-145); TCO2 26 mmol/L (25-35)
[2016-05-04] MEDS: CALTRATE 600 + D PO SCH (10:34)
[2016-05-04] MEDS: MAG-OX PO SCH (10:34)
[2016-05-04] MEDS: SYNTHROID PO SCH (10:36)
[2016-05-04] MEDS: VITAMIN C PO SCH (10:37)
[2016-05-04] MEDS: VITAMIN B-12 PO SCH (10:38)
[2016-05-04] MEDS: CENTRUM SILVER PO SCH ×2 (10:38→20:49)
[2016-05-04] MEDS: ALLEGRA PO SCH (10:38)
[2016-05-04] MEDS: CULTURELLE PO SCH (10:39)
[2016-05-04] MEDS: DETROL PO SCH (10:40)
[2016-05-04] MEDS: WELLBUTRIN PO SCH (10:40)
[2016-05-04] MEDS: NEURONTIN PO SCH ×2 (10:40→20:49)
[2016-05-04] MEDS: COENZYME Q10 PO SCH (10:41)
[2016-05-04] MEDS: LASIX IV SCH (10:42)
[2016-05-04] MEDS: PATIENT'S OWN MED PO SCH (10:43)
[2016-05-04] MEDS: AMBIEN PO SCH (20:49)
[2016-05-04] MEDS: ZOCOR PO SCH (20:49)
[2016-05-04] MEDS: XARELTO PO SCH (20:49)
[2016-05-04] MEDS: ZETIA PO SCH (20:50)
--- NOTE | 2016-05-04 21:18 | PROGRESS NOTE ---
DATE: 05/04/2016 SUBJECTIVE: Today Mr. Kevin referred to be doing relatively fine. He still has some baseline wheezing and shortness of breath. Patient refers not to have had any bowel movement for the past 3 days. OBJECTIVE: Vital Signs: Blood pressure is 143/66, pulse of 180, respirations 18, temperature is 97.3 degrees. General: Mr. Kevin is an 89-year-old, male. He is in bed. He seems to be in mild respiratory distress. HEENT: Mucosa is pink and moist. Anicteric. Acyanotic. Neck: Supple. Chest: Air entry is bilaterally reduced. There is diffuse end expiratory wheezing and rhonchi posteriorly. Cardiovascular: Regular rate and rhythm. Abdomen: Soft, nontender. Extremities: No pedal edema. Central Nervous System: Patient was alert and oriented x4. There is no focal neurological deficit. LABORATORY DATA: WBC is 15.2, hemoglobin is 14.5, platelet count of 218,000. Chemistry has been reviewed. Sodium is improved to 129 from 122. Thyroid function tests have been normal. CURRENT MEDICATIONS: 1. Nebulizations. 2. Azithromycin 500 q.24 hours. 3. Vitamin D. 4. B12. 5. Furosemide 40 mg IV daily. 6. Gabapentin. 7. Rivaroxaban 15 mg p.o. at bedtime. 8. Simvastatin. 9. Solu-Medrol 80 mg IV q.8 hours. 10. Levothyroxine 37.5 mcg daily. ASSESSMENT: 1. Acute hypoxemic respiratory failure on presentation. 2. Acute pulmonary edema likely due to diastolic heart failure. 3. Hyponatremia improving. 4. Constipation. We will treat this symptomatically. 5. History of chronic obstructive pulmonary disease likely in exacerbation. 6. Hypothyroidism controlled. 7. History of restless legs syndrome. PLAN: Patient seems to be doing fine. We will give him a dose of Milk of Magnesia for bowel movements and we will continue with the current nebulization with aggressive pulmonary toilette. We are still pending Pulmonary Medicine to evaluate the patient.
[2016-05-05] MEDS: SOLU-MEDROL IV SCH ×2 (03:15→09:15)
[2016-05-05] MEDS: DUONEB (A & A) INH SCH ×6 (03:48→22:58)
--- NOTE | 2016-05-05 05:38 | CONSULTATION ---
DATE OF CONSULTATION: 05/04/2016 REQUESTING PHYSICIAN: Michael Coleman MD REASON FOR CONSULTATION: Chronic obstructive pulmonary disease. HISTORY OF PRESENT ILLNESS: Mr. Kevin is an 89-year-old, white male with a 100 pack year history for tobacco (currently nonsmoker), chronic obstructive pulmonary disease, disequilibrium syndrome, status post balance evaluation, who was evaluated in my clinic in March with hypersomnolence. The patient's reported he falls asleep during yarsanism and sometimes and at breakfast, but he has very poor sleep hygiene. He was scheduled for a sleep apnea evaluation. This has not yet been reviewed. The patient reports he went to the bathroom and apparently fell and struck his head causing a laceration with bleeding. He does not recall the event. The patient was initially unresponsive when he was found by his . The patient presented to the emergency room on 05/02/2016. CT scan of the head and cervical spine were performed which revealed extensive chronic microvascular disease, but no evidence of acute disease or hemorrhage. CT scan of the neck revealed degenerative changes, but no acute fracture. Electrolytes revealed a sodium of 120 and this has slowly improved to 129. Currently, he feels well and was returned to his baseline. An echocardiogram was also performed which reveals biatrial enlargement, normal ejection fraction, moderate pulmonary hypertension, mild mitral regurgitation, with no aortic stenosis or regurgitation. PAST MEDICAL HISTORY/PROBLEM LIST: 1. Extensive tobacco history, with chronic obstructive pulmonary disease, with mild obstruction on prior studies. 2. Paroxysmal atrial fibrillation. 3. Status post dual-chamber pacemaker placement in 2014. 4. Peripheral vascular disease. 5. Restless leg syndrome. 6. Disequilibrium, status post balance evaluation. SOCIAL HISTORY: Patient is . 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 Extensive tobacco use as per above. Occasional alcohol use. FAMILY HISTORY: Positive for heart failure, coronary artery disease, and lung cancer. REVIEW OF SYSTEMS: As noted in the history of present illness. The patient currently denies cough, fevers, chills, or sputum production. Review of systems otherwise negative. PHYSICAL EXAMINATION: General: Reveals a well-developed, well-nourished white male, resting comfortably, and in no distress. He has evidence of scleral bleeding in the right eye with evidence of bruising on the left forehead. Vital Signs: Stable. He is afebrile. HEENT: Pupils are equal and reactive. Oropharynx is clear. Neck: Supple. Chest: Reveals minor wheeze with forced exhalation. Cardiac Examination: Distant heart sounds, with regular rhythm. Abdomen: Soft and without hepatosplenomegaly. Extremities: Trace edema. LABORATORIES: Chest x-ray on admission reveals prominent vasculature consistent with mild pulmonary edema. Chest x-ray 05/03/2016 reveals decrease in central vascular congestion. IMPRESSION: An 89-year-old white male with extensive tobacco history, history of paroxysmal atrial fibrillation with biventricular pacemaker placement, disequilibrium on balance, who presents following a presumptive syncopal event. He had mild pulmonary edema on presentation, which may have been related to diastolic dysfunction. The patient also had significant hyponatremia, which is easily correcting. This may be due to excess water ingestion in a patient who his water avid. However, with his extensive tobacco history and significant hyponatremia, a CT scan of the thorax will be performed. RECOMMENDATIONS: 1. Correct hyponatremia and discuss water restriction with the patient. 2. Continue pulmonary medications. 3. CT scan of the thorax, as per above. 4. Additional recommendations pending hospital course.
[2016-05-05] MEDS: PRILOSEC PO SCH ×2 (06:16→06:19)
[2016-05-05 07:05] LABS: HEMATOCRIT 39.7 % (42.0-52.0); HEMOGLOBIN 13.8 g/dL (14.0-18.0); IMM GRAN# 0.04 X1000 (0.0-0.04); IMM GRAN% 0.4 % (0.0-0.5); LYMPH% 4.9 % (20.5-51.1); MANUAL DIFF NEEDED? YES; MCH 30.5 PG (27-31); MCHC 34.8 g/dL (33-37); MCV 87.8 FL (81-99); MONO# 0.54 X1000 (0.11-0.59); MONO% 5.3 % (1.7-9.3); MPV 9.5 FL (7.4-10.4); NEUT% 89.4 % (42.2-75.2); PLT 224 X1000 (130-400); RBC 4.52 XMIL (4.7-6.1)
[2016-05-05 07:18] LABS: AGAP 13; BUN 21 mg/dL (8-22); CALCIUM 8.4 mg/dL (8.8-10.2); CHLORIDE 91 mmol/L (98-107); COSMO 267; POTASSIUM 3.9 mmol/L (3.5-5.1); SODIUM 130 mmol/L (136-145); TCO2 26 mmol/L (25-35)
[2016-05-05] MEDS: PULMICORT INH SCH ×2 (07:39→22:59)
[2016-05-05] MEDS: MUCOMYST 20% INH SCH ×2 (07:39→22:59)
[2016-05-05 07:47] LABS: LYMPHS 4 % (21-51); MONO 4 % (1-9)
--- NOTE | 2016-05-05 08:58 | Diag Imaging Result Document ---
PROCEDURE NAME: CT THORAX W/CONTRAST - 05/05/2016 CT OF THE CHEST WITH INTRAVENOUS CONTRAST AND CLARITY: COMPARISON: There are no previous studies available for comparison. FINDINGS: There is some apical pleural thickening bilaterally. There is a granuloma present in the left apex. There may be some interstitial fibrosis or edema in the lung bases, particularly the left lower lobe. 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 Dense atherosclerotic calcification is present in the thoracic aorta. There is no evidence of aneurysm or dissection. There is calcification in the left anterior descending and circumflex arteries. There is a gallstone present in the gallbladder exceeding 2 cm in size, and there is pericholecystic fluid. The possibility of acute cholecystitis cannot be excluded. There is a small right pleural effusion. There are spondylotic changes in the thoracic spine. IMPRESSION: Minimal granulomatous changes. Small right pleural effusion. The possibility of interstitial fibrosis and/or edema cannot be excluded. Cholelithiasis and possible cholecystitis. The findings were discussed with Dr. Helm by telephone at 0838 hours.
[2016-05-05] MEDS: VITAMIN C PO SCH (09:14)
[2016-05-05] MEDS: MAG-OX PO SCH (09:14)
[2016-05-05] MEDS: CALTRATE 600 + D PO SCH (09:14)
[2016-05-05] MEDS: ALLEGRA PO SCH (09:15)
[2016-05-05] MEDS: VITAMIN B-12 PO SCH (09:15)
[2016-05-05] MEDS: LASIX IV SCH (09:15)
[2016-05-05] MEDS: DETROL PO SCH (09:15)
[2016-05-05] MEDS: WELLBUTRIN PO SCH (09:15)
[2016-05-05] MEDS: SYNTHROID PO SCH (09:15)
[2016-05-05] MEDS: CENTRUM SILVER PO SCH ×2 (09:15→21:39)
[2016-05-05] MEDS: CULTURELLE PO SCH (09:15)
[2016-05-05] MEDS: PATIENT'S OWN MED PO SCH (09:21)
[2016-05-05] MEDS: NEURONTIN PO SCH ×2 (09:21→21:40)
[2016-05-05] MEDS: COENZYME Q10 PO SCH (09:41)
[2016-05-05] MEDS: ZITHROMAX 500 MG/NS 250 ML IV SCH (12:50)
--- NOTE | 2016-05-05 15:33 | Diag Imaging Result Document ---
PROCEDURE NAME: US GB < RUQ (LIMITED) - 05/05/2016 RIGHT UPPER QUADRANT ABDOMINAL ULTRASOUND: COMPARISON: None available. FINDINGS: There is a shadowing stone in the lumen of the gallbladder. The gallbladder wall is borderline thickened, measuring up to 3 mm. No pericholecystic fluid is identified. The common bile duct is normal in diameter. Sonographic Garcia's sign was reported to be negative. The pancreas is obscured by bowel gas. The liver, aorta, IVC, and right kidney are grossly unremarkable. IMPRESSION: Cholelithiasis, with borderline thickened gallbladder wall, but no surrounding fluid and a negative sonographic Garcia's sign as per the technologist.
--- NOTE | 2016-05-05 16:26 | PROGRESS NOTE ---
DATE: 05/05/2016 SUBJECTIVE: Today Mr. Kevin referred to be doing fine. Actually when I saw him he was sitting up in the chair, having his lunch. OBJECTIVE: Vital signs: Blood pressure is 136/69, pulse of 85, respirations 21, temperature is 97.5 degrees. The patient was saturating 98% on 2 L of nasal canula. General: Mr. Kevin is an 89-year-old male. He was sitting up on the side of the bed, having his lunch. He was not in any respiratory distress. HEENT: Mucosa was pink and moist. Anicteric. Acyanotic. Neck: Supple. Chest: Good air entry bilateral. There were still some lower bilateral coarse crepitations and end-expiratory prolonged phase of respiration. Cardiovascular: Regular rate and rhythm. No murmurs. No rubs. No gallops. Abdomen: Soft, nontender. Extremities: No pedal edema. MEDICAL CONCIERGE: Patient was alert and oriented x4. There is no focal neurological deficit. LABORATORY DATA: WBC 10.20, hemoglobin is 13.8, platelet count of 224,000. Chemistry is reviewed. Sodium is 130, potassium is 3.9, chloride is 91, bicarb is 26. A CT scan of the chest was done this morning which showed minimal granulomatous changes, small right pleural effusion. Possibility of interstitial fibrosis and/or edema could not be excluded. There was cholelithiasis and possible cholecystitis. ASSESSMENT: 1. Acute hypoxemic respiratory failure on presentation. 2. Chronic obstructive pulmonary disease exacerbation. 3. Acute pulmonary edema, likely due to diastolic heart failure. 4. Hypothyroidism. 5. Restless leg syndrome. 6. Hyponatremia, improved. 7. Constipation, improved. 8. History of atrial fibrillation, on Xarelto coagulation. 9. Cholelithiasis with possible cholecystitis. PLAN: In general Mr. Kevin seems to be doing a whole lot better. Breathing is improved. We will continue with the current antibiotics and steroids. We are going to switch the IV steroids to p.o. in anticipation to discharge the patient soon. Will continue with the IV Lasix as well. We will do an ultrasound of the right upper quadrant to followup on the cholelithiasis and possible cholecystitis. Clinically the patient does not look in acute pain suggestive of acute cholecystitis. I think this is probably a chronic finding and we might probably end doing a HIDA scan to see how much the gallbladder is putting out. We will review that after the ultrasound report is up.
[2016-05-05] MEDS ORDERED: SOLU-MEDROL IV SCH (21:00)
[2016-05-05] MEDS: AMBIEN PO SCH (21:40)
[2016-05-05] MEDS: XARELTO PO SCH (21:40)
[2016-05-05] MEDS: ZETIA PO SCH (21:40)
[2016-05-05] MEDS: ZOCOR PO SCH (21:41)
[2016-05-06] MEDS: DUONEB (A & A) INH SCH ×6 (04:06→23:21)
[2016-05-06] MEDS: PRILOSEC PO SCH (06:36)
[2016-05-06] MEDS: PULMICORT INH SCH ×2 (08:14→19:35)
[2016-05-06] MEDS: MUCOMYST 20% INH SCH ×2 (08:14→19:35)
[2016-05-06] MEDS: VITAMIN B-12 PO SCH (08:50)
[2016-05-06] MEDS: ALLEGRA PO SCH (08:50)
[2016-05-06] MEDS: VITAMIN C PO SCH (08:50)
[2016-05-06] MEDS: CENTRUM SILVER PO SCH ×2 (08:50→20:24)
[2016-05-06] MEDS: DETROL PO SCH (08:50)
[2016-05-06] MEDS: CALTRATE 600 + D PO SCH (08:50)
[2016-05-06] MEDS: COENZYME Q10 PO SCH (08:51)
[2016-05-06] MEDS: MAG-OX PO SCH (08:51)
[2016-05-06] MEDS: CULTURELLE PO SCH (08:51)
[2016-05-06] MEDS: LASIX IV SCH (08:51)
[2016-05-06] MEDS: NEURONTIN PO SCH ×2 (08:51→20:24)
[2016-05-06] MEDS: SYNTHROID PO SCH (08:51)
[2016-05-06] MEDS: WELLBUTRIN PO SCH (08:52)
[2016-05-06] MEDS: PATIENT'S OWN MED PO SCH (08:56)
[2016-05-06] MEDS: PREDNISONE PO SCH (08:56)
[2016-05-06 09:59] LABS: AGAP 11; BUN 20 mg/dL (8-22); CALCIUM 8.4 mg/dL (8.8-10.2); CHLORIDE 91 mmol/L (98-107); COSMO 267; POTASSIUM 3.9 mmol/L (3.5-5.1); SODIUM 131 mmol/L (136-145); TCO2 29 mmol/L (25-35)
--- NOTE | 2016-05-06 13:05 | DISCHARGE SUMMARY ---
ADMISSION DATE: 05/02/2016 DISCHARGE DATE: 05/06/2016 CONSULTATIONS: Dr. Adair Helm STUDIES AND PROCEDURES: 1. Head and cervical spine CT showed stable extensive chronic changes but no evidence of acute intracranial pathology. Multilevel degenerative changes throughout the cervical spine but no evidence of fracture or other definite acute C-spine injury. 2. Echocardiogram showed an EF of 60%. 3. Chest CT showed minimal granulomatosis changes. Small right pleural effusion. Possibility of interstitial fibrosis and/or edema could not be excluded. Cholelithiasis and possible cholecystitis. DISCHARGE DIAGNOSES: 1. Acute hypoxic respiratory failure on presentation, resolved. 2. Chronic obstructive pulmonary disease exacerbation, resolved. 3. Acute pulmonary edema secondary to diastolic heart failure, resolved. 4. Hypothyroidism. Continue Synthroid. 5. Restless leg syndrome. Continue home medications. 6. Hyponatremia improved. 7. Constipation improved. 8. Atrial fibrillation history, rate controlled on Xarelto. 9. Cholelithiasis without cholecystitis. The patient will follow up with Dr. Padron in a week although patient was showing no signs and symptoms of acute cholecystitis. HOSPITAL COURSE: Briefly, Mr. Kevin is an 89-year-old, male with a past medical history of atrial fibrillation on Xarelto with permanent pacemaker, COPD, asthma without any home O2, hypothyroidism. The patient reported to the ED after the patient fell in the bathroom and hit his head. Upon examination the patient did not remember falling, so it was unknown if he had syncope or if he tripped. The patient underwent a head and cervical spine CT that was stable. It showed degenerative disk changes. There have been no complaints of headache or dizziness. He did state for the last week he had symptoms of shortness of breath with wheezing. There was no dizziness or headache. Patient was seen by his primary care provider who had diagnosed him with bronchitis. He was started on Levaquin. Chest x-ray showed pulmonary edema and possible right- sided pneumonia. Patient was treated with a 1 time dose of Lasix and started on azithromycin for possible pneumonia. He did have wheezing and crackles on auscultation. He was on room air. Saturation hanging around 90%. His atrial fibrillation was controlled at a paced rate of 80. There was no lower extremity edema. The patient was admitted for congestive heart failure as well as COPD. He was treated with IV steroids, bronchodilators as well as aggressive pulmonary toilet as well as supplemental O2. With the patient's crackles as well as chest x-ray that did show pulmonary edema he was treated with a 1 time dose of Lasix. His echocardiogram showed an EF of 60%. The pulmonary artery pressure is 37-40 and trace pulmonary regurgitation. Dr. Helm was consulted for the patient's COPD. They did perform a CT of the thorax that showed minimal granulomatosis changes and small right pleural effusion. The possibility of interstitial fibrosis and/or edema could not be excluded. Cholelithiasis versus cholecystitis. Findings were discussed with Dr. Helm. Abdominal ultrasound showed cholelithiasis with borderline thickened gallbladder wall but no surrounding fluid and negative sonographic Garcia's sign. Patient will follow up with Dr. Padron in a week. ground services instructor was consulted for rehab placement. He does have a bed today at [facility]. Dr. Coleman assessed the patient and feels he is appropriate for discharge. VITAL SIGNS AT DISCHARGE: Temperature is 97.4 degrees, heart rate 81, respirations 20, blood pressure 139/87, O2 is 96% on room air. DISCHARGED DIET: Healthy heart. DISCHARGE MEDICATIONS: 1. Wellbutrin 75 mg p.o. daily. 2. Vytorin 0.5 mg p.o. at bedtime. 3. Gabapentin 100 mg p.o. daily. 4. Synthroid 37.5 mg p.o. q.a.m. 5. Gabapentin 300 mg p.o. at bedtime. 6. Lawanda 180 mg p.o. daily. 7. Vitamin C 1000 mg p.o. daily. 8. Calcium plus D3 ER 1 each p.o. daily. 9. Culturelle 1 each p.o. daily. 10. Vitamin B12 1000 mcg p.o. daily. 11. Detrol 2 mg p.o. daily. 12. Eszopiclone 2 mg p.o. at bedtime. 13. Osteo Bi-Flex 1 dose p.o. daily. 14. Mag-Ox 125 mg p.o. daily. 15. Multivitamin with iron 1 each p.o. b.i.d. 16. Xarelto 15 mg p.o. at bedtime. 17. CoQ10, 2 each p.o. daily. 18. Prednisone 20 mg p.o. daily. 19. Zithromax 250 mg p.o. daily for 6 more days. FOLLOWUP: Patient is being discharged to [facility] rehab. He will need to follow up with his primary care physician Dr. Kimberly Lake, as well as Dr. Padron in 1 week. Patient can return to the ED for any worsening of symptoms. Dictated by CHANELL Duque for Michael Coleman MD MTDD
[2016-05-06] MEDS: ZOCOR PO SCH (20:24)
[2016-05-06] MEDS: AMBIEN PO SCH (20:24)
[2016-05-06] MEDS: ZETIA PO SCH (20:24)
[2016-05-06] MEDS: XARELTO PO SCH (20:24)
[2016-05-07] MEDS: DUONEB (A & A) INH SCH ×2 (03:51→07:41)
[2016-05-07] MEDS: PRILOSEC PO SCH (06:22)
[2016-05-07] MEDS: PULMICORT INH SCH (07:42)
[2016-05-07] MEDS: MUCOMYST 20% INH SCH (07:42)
[2016-05-07] MEDS: VITAMIN B-12 PO SCH (08:25)
[2016-05-07] MEDS: WELLBUTRIN PO SCH (08:25)
[2016-05-07] MEDS: CENTRUM SILVER PO SCH (08:25)
[2016-05-07] MEDS: VITAMIN C PO SCH (08:25)
[2016-05-07] MEDS: ALLEGRA PO SCH (08:25)
[2016-05-07] MEDS: CALTRATE 600 + D PO SCH (08:25)
[2016-05-07] MEDS: CULTURELLE PO SCH (08:26)
[2016-05-07] MEDS: NEURONTIN PO SCH (08:26)
[2016-05-07] MEDS: DETROL PO SCH (08:26)
[2016-05-07] MEDS: MAG-OX PO SCH (08:26)
[2016-05-07] MEDS: COENZYME Q10 PO SCH (08:26)
[2016-05-07] MEDS: SYNTHROID PO SCH (08:27)
[2016-05-07] MEDS: PATIENT'S OWN MED PO SCH (08:27)
[2016-05-07] MEDS: PREDNISONE PO SCH (08:28)
[2016-05-07 08:33] VITALS: BP 134/76
[2016-05-07] MEDS ORDERED: ZITHROMAX PO SCH (09:00)
--- NOTE | 2016-05-07 12:45 | PROGRESS NOTE ---
DATE: 05/07/2016 SUBJECTIVE: Mr. Kevin is actually discharged. He is just pending on rehab placement. He refers to be doing okay today. Yesterday he was moving from the bed to a chair and looks like he miscalculated the distance and fell on his butt, but he was able to get up by himself with a little help from the family members. This morning he was able to do physical therapy with the crew. OBJECTIVE: Vitals: Today blood pressure is 134/76, respirations 19 and temperature is 98.2 degrees. Physical Exam: Unchanged. LABORATORIES: No labs for today. ASSESSMENT: 1. Acute hypoxemic respiratory failure on presentation. This is improved. 2. Chronic obstructive pulmonary disease exacerbation. This is improved. 3. Pulmonary edema, secondary to acute diastolic heart failure. 4. Hypothyroidism. 5. Restless leg syndrome. 6. Hyponatremia, resolved. 7. History of atrial fibrillation on Xarelto. 8. Cholelithiasis with no cholecystitis. To follow up with Dr Kat GENERAL PLAN: Patient is doing fine. We just waiting on insurance to approve his days in rehabilitation, and the patient will be discharged. Patient did pretty well with PT today. I understand Insurance has declined his petition to rehab so will be discharged home with Home health/PT. BROOKE
== END 2016-05-07 14:23 | disposition home health service (06) | DRG 291 ==
LOC: EDBD → ED 09:07 → EDIPHOLD 13:20 → 3N 15:15
PROVIDERS: ATTEND Internal Medicine
DX: I50.31 Acute diastolic (congestive) heart failure (principal); J96.01 Acute respiratory failure with hypoxia; J44.1 Chronic obstructive pulmonary disease with (acute) exacerbation; I27.2 Other secondary pulmonary hypertension; I48.0 Paroxysmal atrial fibrillation; E87.1 Hypo-osmolality and hyponatremia; R55 Syncope and collapse; J45.909 Unspecified asthma, uncomplicated; E03.9 Hypothyroidism, unspecified; F32.9 Major depressive disorder, single episode, unspecified; I73.9 Peripheral vascular disease, unspecified; G25.81 Restless legs syndrome; K59.00 Constipation, unspecified; K80.20 Calculus of gallbladder without cholecystitis without obstruction; M50.30 Other cervical disc degeneration, unspecified cervical region; E78.5 Hyperlipidemia, unspecified; K21.9 Gastro-esophageal reflux disease without esophagitis; M47.814 Spondylosis without myelopathy or radiculopathy, thoracic region; M19.90 Unspecified osteoarthritis, unspecified site; G47.00 Insomnia, unspecified; E80.6 Other disorders of bilirubin metabolism; N40.0 Benign prostatic hyperplasia without lower urinary tract symptoms; R42 Dizziness and giddiness; W18.39XA Other fall on same level, initial encounter; S00.83XA Contusion of other part of head, initial encounter; Z79.01 Long term (current) use of anticoagulants; Z95.0 Presence of cardiac pacemaker; Z82.49 Family history of ischemic heart disease and other diseases of the circulatory system; Z82.3 Family history of stroke; Z87.891 Personal history of nicotine dependence; Z79.899 Other long term (current) drug therapy; Z80.1 Family history of malignant neoplasm of trachea, bronchus and lung
CPT/HCPCS: 70450; 71020; 71260; 72125; 76705; 80048; 80053; 80061; 81001; 82550; 82553; 82805; 83036; 83721; 83735; 83880; 84439; 84443; 84484; 85025; 85379; 85610; 85730; 87040; 87088; 93306; 93880; 94640; 94761; 94799; 96374; 96375; J0456; J1940; J2920; J2930; J3475; J3480; J7512; Q9967; 97116-GP; 97530-GP